=== PATIENT | male | born 1995 | race African-American/Black ===

== ENCOUNTER 2022-07-29 08:55 | Emergency (ER) | payer OTHER ==
[~2022-07-29] VITALS: Ht 180.3 cm; Wt 77.1 kg
[2022-07-29 09:04] VITALS: BP_SYST 115
--- NOTE | 2022-07-29 09:21 | NUR ---
Placed in room . Placed on adapted physical education aide, blood pressure machine and pulse oximeter. To gown for exam. Side rails up. Report given to
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
--- NOTE | 2022-07-29 09:28 | NUR ---
MD DR PHAN AT BEDSIDE
[2022-07-29] MEDS ORDERED: HYDROcodone/ACETAMIN 10-325 MG TAB PO ONE (09:45)
[2022-07-29] MEDS ORDERED: IBUPROFEN 800 MG TABLET PO ONE (09:45)
[2022-07-29] MEDS ORDERED: IBUP-1971 PO (09:47)
[2022-07-29] MEDS ORDERED: SOM350 PO (09:47)
--- NOTE | 2022-07-29 10:39 | NUR ---
Patient given written and verbal discharge instructions and verbalizes understanding. ER MD discussed with patient the results and treatment provided. Patient in stable condition. ID arm band removed. Rx of IBUPROFEN AND SOMA given. Patient educated on pain management and to follow up with PMD. Opportunity for questions provided and answered. Medication side effect fact sheet provided.
[2022-07-29 10:40] VITALS: BP_SYST 115
== END 2022-07-29 10:39 | disposition home or self-care (01) ==
LOC: SED 08:55
DX: S13.4XXA Sprain of ligaments of cervical spine, initial encounter (principal); Z79.899 Other long term (current) drug therapy; V89.2XXA Person injured in unspecified motor-vehicle accident, traffic, initial encounter; Y93.89 Activity, other specified; Y92.89 Other specified places as the place of occurrence of the external cause; Y99.8 Other external cause status
CPT/HCPCS: 72050-TC; 99283